=== PATIENT | female | born 1960 | race Caucasian/White ===

== ENCOUNTER 2019-03-30 11:08 | Outpatient (CLI) | payer OTHER | END 2019-03-30 23:59 | disposition home or self-care (01) | LOC: STAR 11:08 → MERGE 11:30 → STAR 23:59 | PROVIDERS: ATTEND Orthopaedic Surgery | DX: Z02.9 Encounter for administrative examinations, unspecified (principal) ==

== ENCOUNTER 2019-04-04 13:22 | Day surgery (SDC) | payer MEDICARE, OTHER ==
[~2019-04-04] VITALS: Ht 165.1 cm; Wt 51.6 kg
[~2019-04-04 13:22] MED LIST: AMOX125T PO; HYDR-3245 PO; LORA0.5T PO
[2019-04-04] MEDS ORDERED: LACTATED RINGERS 1,000 ML IV SCH (13:54)
[2019-04-04] MEDS ORDERED: MIDAZOLAM 1 MG/ML, 2ML ONE (14:57)
[2019-04-04] MEDS ORDERED: FENTANYL PF 100 MCG/2ML ONE (14:57)
[2019-04-04] MEDS ORDERED: LIDOCAINE 1%, 20ML ONE (15:08)
[2019-04-04] MEDS ORDERED: EPINEPHRINE 1 MG/ML, 1ML ONE (15:08)
[2019-04-04] MEDS ORDERED: BUPIVACAINE/PF 0.5% ONE (15:08)
[2019-04-04] MEDS ORDERED: DEXAMETHASONE 4 MG/ML, 1ML ONE (15:25)
[2019-04-04] MEDS ORDERED: PROPOFOL 10 MG/ML, 20ML ONE (15:25)
[2019-04-04] MEDS ORDERED: LIDOCAINE-MPF 2% ,5ML ONE (15:25)
[2019-04-04] MEDS ORDERED: ONDANSETRON 2MG/ML, 2ML ONE (15:25)
[2019-04-04] MEDS ORDERED: WATER-INJECTION,STERILE 10 ML IV ONE (15:25)
[2019-04-04] MEDS ORDERED: KETOROLAC 30 MG/1 ML ONE (15:25)
[2019-04-04] MEDS ORDERED: CEFAZOLIN 1,000 MG ONE (15:25)
[2019-04-04] MEDS ORDERED: OXYcodone 5 MG/5 ML ORAL.SOL UDC ONE (15:56)
[2019-04-04] MEDS ORDERED: HALOPERIDOL 5 MG/ML IV PRN (16:00)
[2019-04-04] MEDS ORDERED: OXYcodone 5 MG/5 ML ORAL.SOL UDC PO PRN (16:00)
[2019-04-04] MEDS ORDERED: HYDROmorphone 2 MG/ML, 1ML IVPush PRN (16:00)
[2019-04-04] MEDS ORDERED: MEPERIDINE/PF 25MG/0.5ML IVPush PRN (16:00)
[2019-04-04] MEDS ORDERED: FENTANYL PF 100 MCG/2ML IV PRN (16:00)
[2019-04-04] MEDS ORDERED: PROMETHAZINE 25 MG/ML, 1ML IV PRN (16:00)
[2019-04-04] MEDS ORDERED: ACETAMINOPHEN 325 MG TABLET PO PRN (16:00)
== END 2019-04-04 17:00 | disposition home or self-care (01) ==
LOC: OUT 13:22 → MERGE 15:00 → OUT 17:00
PROVIDERS: ATTEND Orthopaedic Surgery
DX: G56.01 Carpal tunnel syndrome, right upper limb (principal); Z87.891 Personal history of nicotine dependence
CPT/HCPCS: 29848; J0171; J0690; J1100; J1885; J2250; J2405; J2704; J3010; J7120